=== PATIENT | male | born 1940 | race Caucasian/White ===

== ENCOUNTER → 2017-10-16 | Outpatient (CLI) | payer OTHER, BC ==
[2017-10-16 12:09] LABS: BASO % 1.1 %; BASO ABS # 0.14 K/uL (0-0.2); COMPLETE YES; EOS % 2.1 %; HEMATOCRIT 48.2 % (42-52); IG% 2.7 %; LYMPH % 16.6 %; LYMPH ABS # 2.18 K/uL (1.2-3.4); MEAN CELL VOLUME 79.9 fL (80-100); MEAN CORPUSCULAR HEMOGLOBIN 26.2 pg (25-34); MEAN CORPUSCULAR HGB CONC 32.8 g/dl (32-36); MEAN PLATELET VOLUME 10.8 fL (7.4-10.4); MONO % 8.3 %; NEUT % 69.2 %; PLATELET COUNT 317 K/uL (130-400); RED BLOOD COUNT 6.03 M/uL (4.7-6.1)
[2017-10-16 12:30] LABS: ALT/SGPT 86 U/L (12-78); AST/SGOT 55 U/L (15-37); BLOOD UREA NITROGEN 16 mg/dl (7-18); BUN/CREATININE RATIO 14.2 (10-20); CALCIUM 8.7 mg/dl (8.5-10.1); CARBON DIOXIDE 32 mmol/L (21-32); CHLORIDE 99 mmol/L (98-107); GLUCOSE 163 mg/dl (70-99); POTASSIUM 3.4 mmol/L (3.5-5.1); SODIUM 135 mmol/L (136-145)
[2017-10-16 12:33] LABS: ALB/GLOB RATIO 0.7 (0.9-2); ALKALINE PHOSPHATASE 244 U/L (45-117)
== END | disposition home or self-care (01) ==
LOC: C.LAB1850 11:16
PROVIDERS: ATTEND Internal Medicine Pulmonary Disease
DX: R06.02 Shortness of breath (principal)

== ENCOUNTER → 2017-10-16 | Outpatient (CLI) | payer OTHER, BC ==
--- NOTE | 2017-10-16 11:58 | DIAGNOSTIC IMAGING REPORT ---
CHEST 2 VIEWS ROUTINE HISTORY: 77 years-old Male I27.20 Pulmonary [id number] Restrictive lung [id number] SOB (sh COMPARISON: None available TECHNIQUE: Frontal and lateral views of the chest FINDINGS: Cardiac silhouette is mildly enlarged. Pulmonary vascular congestion without overt pulmonary edema. Atherosclerosis of the aorta. Note is made of an azygos lobe and fissure. No pneumothorax or pleural effusion. Linear subsegmental left basilar opacities are noted. The bones are grossly intact. Multiple remote appearing left-sided rib fractures. IMPRESSION: 1. Cardiomegaly without overt pulmonary edema. 2. Linear subsegmental left basilar opacities suggest atelectasis or scarring. The above report was generated using voice recognition software. It may contain grammatical, syntax or spelling errors. Electronically signed by: Tyshawn Cardenas M.D. 10/16/2017 11:57 AM Dictated Date/Time: 10/16/2017 11:55 AM
== END | disposition home or self-care (01) ==
LOC: C.RAD1850 11:33
PROVIDERS: ATTEND Internal Medicine Pulmonary Disease
DX: I27.20 Pulmonary hypertension, unspecified (principal); J98.4 Other disorders of lung; R06.02 Shortness of breath